=== PATIENT | female | born 1975 | race Caucasian/White ===

== ENCOUNTER 2017-11-25 21:23 | Emergency (ER) | payer OTHER ==
[2017-11-25 21:50] VITALS: BP 151/94; PULSE 86; TEMP 99.3; BMI 22.3
--- NOTE | 2017-11-25 22:11 | PDOC ---
History of Present Illness - General Chief Complaint: Laceration Stated Complaint: INJURY Time Seen by Provider: 11/25/17 22:06 History Source: Patient Exam Limitations: No Limitations - History of Present Illness Initial Comments: 11/25/17 22:06 This is a 42-year-old woman without significant past medical history who presents today with curved laceration to her right middle finger. Patient states she was opening up a can of vegetables when her finger slipped on the lid and got caught on the edge. She denies any chest pain shortness of breath nausea vomiting. Bleeding controlled upon arrival. Past History - Past Medical History Allergies/Adverse Reactions: Allergies Allergy/AdvReac Type Severity Reaction Status Date / Time No Known Allergies Allergy Verified 11/25/17 21:33 COPD: No - Suicide/Smoking/Psychosocial Hx Smoking History: Current some day smoker Have you smoked in the past 12 months: Yes Number of Cigarettes Smoked Daily: 1 Information on smoking cessation initiated: No Hx Alcohol Use: Yes Drug/Substance Use Hx: No Substance Use Type: Alcohol *Physical Exam - Vital Signs Last Vital Signs Temp Pulse Resp BP Pulse Ox 99.3 F 86 16 151/94 99 11/25/17 21:26 11/25/17 21:26 11/25/17 21:26 11/25/17 21:26 11/25/17 21:26 - Physical Exam General Appearance: Yes: Appropriately Dressed. No: Apparent Distress HEENT: positive: Normal ENT Inspection Neck: positive: Trachea midline Respiratory/Chest: negative: Respiratory Distress, Accessory Muscle Use Gastrointestinal/Abdominal: positive: Normal Bowel Sounds, Soft. negative: Tender Musculoskeletal: positive: Normal Inspection Extremity: positive: Other (1 cm curved uperficial laceration to the distal pad of the right middle finger) Integumentary: positive: Other (1 cm curved uperficial laceration to the distal pad of the right middle finger) Neurologic: positive: Alert, Normal Response Procedures - Consent Consent obtained: Verbal, From Patient - Laceration/Wound Repair Right Distal Volar Finger 3rd digit Wound Length: to 2.5 cm Wound Explored: clean Wound's Depth, Shape: superficial, flap Irrigated w/ Saline: Yes Betadine Prep: Yes Anesthesia: 1% Lidocaine Amount of Anesthetic (ccs): 3 Wound Debrided: minimal Wound Repaired With: Sutures Suture Size/Type: 5:0 Number of Sutures: 4 Layer Closure: No Sterile Dressing Applied: No Medical Decision Making - Medical Decision Making 11/25/17 22:07 A/P: This is a 42-year-old woman without significant past medical history who presents today with curved laceration to her right middle finger. Patient states she was opening up a can of vegetables when her finger slipped on the lid and got caught on the edge. She denies any chest pain shortness of breath nausea vomiting. Bleeding controlled upon arrival. One centimeter curved superficial laceration to distal pad of the right middle finger. Bleeding controlled. Patient with sensation distal to the injury. Unknown last Td. Diagnosis laceration I will repair the laceration. Please see procedure note for details. Patient tolerated the procedure well I will discharge the patient with strict follow-up instructions. Patient verbalized understanding of post suture wound care and need to return for care after 7 days for wound evaluation and possible suture removal. 11/25/17 22:15 *DC/Admit/Observation/Transfer Diagnosis at time of Disposition: Laceration - Discharge Dispostion Disposition: HOME Condition at time of disposition: Stable Admit: No - Referrals Referrals: Laya Rodriguez MD [Primary Care Provider] - - Patient Instructions Printed Discharge Instructions: DI for Laceration Repair Additional Instructions: Keep the sutures dry for the next 24 hours. After the first 24 hours you may wash her but no scrubbing. Be gentle while up plying soap and friction to handle cleaning. You may apply a thin layer of antibiotic ointment to help prevent infection. Return to your doctor or the emergency department in 7 days for wound evaluation and possible suture removal. Return to the ER sooner if you experience increased pain, redness to the site, discharge from the wounds, fevers, streaking up your hand, or any other concerns. Thank you very much for choosing us to provide your emergent healthcare needs. - Post Discharge Activity
[2017-11-25] MEDS ORDERED: DIPHTH,PERTUSS(ACELL),TET 0.5 ML DISP.SYRIN IM ONE (22:15)
== END 2017-11-25 22:18 | disposition home or self-care (01) ==
LOC: JERFT 21:23 → JER 21:23 → JERFT 22:18
PROC: 3E0234Z Introduction of Serum, Toxoid and Vaccine into Muscle, Percutaneous Approach (ICD-10-PCS; principal; 2017-11-25)
PROC: 0HQFXZZ Repair Right Hand Skin, External Approach (ICD-10-PCS; 2017-11-25)
DX: S61.212A Laceration without foreign body of right middle finger without damage to nail, initial encounter (principal); W26.8XXA Contact with other sharp object(s), not elsewhere classified, initial encounter; Y93.G1 Activity, food preparation and clean up; Y92.030 Kitchen in apartment as the place of occurrence of the external cause; Y99.8 Other external cause status
CPT/HCPCS: 12001; 90471; 90715; 99281-25